=== PATIENT | male | born 1990 | race Caucasian/White ===

== ENCOUNTER 2020-07-24 07:25 | Emergency (ER) | payer OTHER ==
[2020-07-24 09:37] LABS: HEMOGLOBIN 17.7 gm/dl (14.0-17.5); RED BLOOD COUNT 5.55 M/UL (4.20-5.50); WHITE BLOOD COUNT 12.1 K/UL (4.5-11.0)
[2020-07-24 10:01] LABS: BUN/CREATININE RATIO 15 (0-10)
[2020-07-24] MEDS ORDERED: HYDROCODON-ACE1 EAC2 PO ×2 (10:18→10:34)
== END 2020-07-24 11:56 | disposition home or self-care (01) ==
LOC: ER1 07:25
PROVIDERS: Emergency Medicine
DX: N13.2 Hydronephrosis with renal and ureteral calculous obstruction (principal); I10 Essential (primary) hypertension; F17.200 Nicotine dependence, unspecified, uncomplicated; Z88.0 Allergy status to penicillin
CPT/HCPCS: 36415; 80053; 81001; 83690; 85025; 96374; 96375; 99284; J1885; J2270; J2405